=== PATIENT | male | born 1990 | race African-American/Black ===

== ENCOUNTER 2017-04-26 02:04 | Inpatient (IN) | payer OTHER ==
[~2017-04-26] VITALS: Ht 177.8 cm; Wt 53.8 kg
[2017-04-26 05:45] VITALS: BP 120/79
[2017-04-26] MEDS ORDERED: ONDANSETRON ODT 4 MG PO PRN (06:00)
[2017-04-26] MEDS ORDERED: PLEASE ENTER ALLERGIES MC SCH (06:00)
[2017-04-26] MEDS ORDERED: ACETAMINOPHEN 325 MG TABLET PO PRN (06:00)
[2017-04-26] MEDS ORDERED: ONDANSETRON 2MG/ML, 2ML IVPush PRN (06:00)
[2017-04-26] MEDS: ASPIRIN 325 MG TABLET EC PO SCH ×2 (06:00→06:26)
[2017-04-26] MEDS ORDERED: PROMETHAZINE 25 MG/ML, 1ML IM PRN (06:00)
[2017-04-26] MEDS ORDERED: BISACODYL 10 MG SUPP PR PRN (06:00)
[2017-04-26] MEDS ORDERED: DOCUSATE 100 MG CAPSULE PO PRN (06:00)
[2017-04-26] MEDS ORDERED: PLEASE ENTER HEIGHT MC SCH (06:00)
[2017-04-26] MEDS: SODIUM CHLORIDE 0.9% 1,000 ML IV SCH ×2 (06:26→15:00)
[2017-04-26 06:40] LABS: BASOPHILS # (AUTO) 0.03 x10^3/uL (0-0.1); BASOPHILS % (AUTO) 1 % (0-1); EOSINOPHILS # (AUTO) 0.05 x10^3/uL (0-0.4); EOSINOPHILS % (AUTO) 1 % (1-7); LYMPHOCYTES # (AUTO) 1.99 x10^3/uL (1-3.4); LYMPHOCYTES % (AUTO) 40 % (22-44); MD NO; MEAN CORPUSCULAR HEMOGLOBIN 30.1 pg (27.5-34.5); MEAN CORPUSCULAR HGB CONC 33.3 g/dL (33.2-36.2); MEAN CORPUSCULAR VOLUME 90.4 fL (81-97); MONOCYTES # (AUTO) 0.48 x10^3/uL (0.2-0.8); MONOCYTES % (AUTO) 10 % (2-9); NEUTROPHILS # (AUTO) 2.49 x10^3/uL (1.8-6.8); NEUTROPHILS % (AUTO) 49 % (42-75); PLATELET COUNT 244 x10^3/uL (130-400); RED BLOOD COUNT 5.08 x10^6/uL (4.38-5.82); RED CELL DISTRIBUTION WIDTH 13.3 % (9.4-14.8)
[2017-04-26 07:05] LABS: ALANINE AMINOTRANSFERASE 30 U/L (12-78); ALBUMIN 3.9 g/dL (3.4-5.0); ANION GAP 7 mmol/L (5-15); CHLORIDE 104 mmol/L (98-107); CHOLESTEROL, TOTAL 133 mg/dL (140-239); CREATININE 0.84 mg/dL (0.7-1.3)
[2017-04-26 07:08] LABS: ALKALINE PHOSPHATASE 48 U/L (45-117); BILIRUBIN,TOTAL 1.4 mg/dL (0.2-1.0); CHOL/HDL RATIO 2.2; HDL CHOL % 46 % (26-37); HDL CHOLESTEROL (DIRECT) 61 mg/dL (40-60); LDL CHOLESTEROL,CALCULATED 64 mg/dL (54-169); TOTAL PROTEIN 8.2 g/dL (6.4-8.2); TRIGLYCERIDES 39 mg/dL (50-200); TROPONIN I < 0.015 ng/mL (0.000-0.045); VLDL CHOLESTEROL 8 mg/dL (0-25)
[2017-04-26 07:12] LABS: HEMOGLOBIN A1C 5.4 % (4.2-6.3)
[2017-04-26 07:30] VITALS: BP 107/70
[2017-04-26] MEDS: SENNA/DOCUSATE TABLET PO SCH (09:00)
[2017-04-26 09:52] LABS: FREE T4 (FREE THYROXINE) 1.15 ng/dL (0.76-1.46); THYROID STIMULATING HORMONE 4.22 mIU/L (0.358-3.740)
[2017-04-26] MEDS ORDERED: DILTIAZEM 120 MG CAP.ER.24H PO SCH (10:00)
[2017-04-26 10:53] VITALS: BP 114/76
[2017-04-26] MEDS: DILTIAZEM 120 MG CAP.ER.24H PO SCH (11:09)
[2017-04-26 11:43] LABS: TROPONIN I < 0.015 ng/mL (0.000-0.045)
[2017-04-26 12:28] VITALS: BP 113/71
[2017-04-26 20:47] VITALS: BP 109/73
[2017-04-27 00:27] VITALS: BP 94/57
[2017-04-27 05:34] LABS: BASOPHILS # (AUTO) 0.02 x10^3/uL (0-0.1); BASOPHILS % (AUTO) 1 % (0-1); EOSINOPHILS # (AUTO) 0.08 x10^3/uL (0-0.4); EOSINOPHILS % (AUTO) 2 % (1-7); LYMPHOCYTES # (AUTO) 2.31 x10^3/uL (1-3.4); LYMPHOCYTES % (AUTO) 45 % (22-44); MD NO; MEAN CORPUSCULAR HGB CONC 33.4 g/dL (33.2-36.2); MEAN CORPUSCULAR VOLUME 89.8 fL (81-97); MEAN PLATELET VOLUME 7.2 fL (7.4-10.4); MONOCYTES # (AUTO) 0.42 x10^3/uL (0.2-0.8); MONOCYTES % (AUTO) 8 % (2-9); NEUTROPHILS # (AUTO) 2.34 x10^3/uL (1.8-6.8); NEUTROPHILS % (AUTO) 45 % (42-75); PLATELET COUNT 231 x10^3/uL (130-400); RED BLOOD COUNT 4.75 x10^6/uL (4.38-5.82); RED CELL DISTRIBUTION WIDTH 13.3 % (9.4-14.8)
[2017-04-27 05:43] LABS: CHLORIDE 105 mmol/L (98-107)
[2017-04-27 05:54] LABS: ANION GAP 8 mmol/L (5-15); CREATININE 0.72 mg/dL (0.7-1.3)
[2017-04-27] MEDS: ASPIRIN 325 MG TABLET EC PO SCH (06:19)
[2017-04-27 07:05] VITALS: BP 101/66
[2017-04-27] MEDS: SENNA/DOCUSATE TABLET PO SCH (08:50)
[2017-04-27] MEDS: DILTIAZEM 120 MG CAP.ER.24H PO SCH (08:52)
[2017-04-27] MEDS ORDERED: MAGNESIUM SULFATE 1 GM in SODIUM CHLORIDE 0.9% 50 ML IV ONE (10:00)
[2017-04-27] MEDS ORDERED: DILT120C9 PO (12:24)
== END 2017-04-27 18:41 | disposition home or self-care (01) | DRG 309 ==
LOC: 5SO 02:04
PROVIDERS: ADMIT Surgery; ATTEND Surgery
DX: I47.1 Supraventricular tachycardia (principal); E46 Unspecified protein-calorie malnutrition; R17 Unspecified jaundice; Z68.1 Body mass index [BMI] 19.9 or less, adult; M21.961 Unspecified acquired deformity of right lower leg; Z65.3 Problems related to other legal circumstances; Z87.891 Personal history of nicotine dependence
CPT/HCPCS: 36415; 76700; 80048; 80053; 80061; 83036; 83735; 84100; 84439; 84443; 84484; 85025; 93005; 93306; 99285; J3475; J7030